=== PATIENT | male | born 1960 | race Two or more races ===

== ENCOUNTER 2018-03-14 10:19 | Day surgery (SDC) | payer BC ==
[2018-03-12 13:46] VITALS: BMI 37.9
[~2018-03-14 10:19] MED LIST: LACTATED RINGERS 1,000 ML IV SCH
[2018-03-14 11:58] VITALS: RESP 16; TEMP 97.1
[2018-03-14] MEDS ORDERED: LIDOCAINE 1% 20 ML VIAL (10MG/ML) FOR IV START INTRADERMA ONE (12:04)
[2018-03-14] MEDS ORDERED: PROPOFOL 10 MG/ML 20 ML VIAL IV ONE (12:19)
[2018-03-14] MEDS ORDERED: MIDAZOLAM 2 MG/2 ML VIAL ONE (12:19)
[2018-03-14] MEDS ORDERED: fentaNYL (PF) 50 MCG/ML 2 ML AMP ONE (12:19)
--- NOTE | 2018-03-14 12:41 | P.PCN ---
Date of Procedure: 03/14/18 Procedure(s) Performed: BRIEF HISTORY: Patient is a 57-year-old pleasant male, scheduled for an elective colonoscopy as a part of screening for colorectal neoplasia and family history of colon cancer. His father was diagnosed with colon cancer at age 60. PROCEDURE PERFORMED: Colonoscopy. PREOPERATIVE DIAGNOSIS: Screening for colon cancer/family history of colon cancer. IV sedation per Anesthesia. PROCEDURE: After informed consent was obtained, the patient, was brought into the endoscopy unit. IV sedation was administered by Anesthesia under continuous monitoring. Digital rectal examination was normal. Initially the Olympus CF- 160 flexible video colonoscope was then inserted in the rectum, gradually advanced into the cecum without any difficulty. Careful examination was performed as the scope was gradually being withdrawn. Ileocecal valve and the appendiceal orifice were visualized and appeared normal. Prep was excellent. Mucosa of the cecum, ascending colon, transverse colon, descending colon, sigmoid colon, and rectum appeared normal. Retroflexion was performed in the rectum and no lesions were seen. The patient tolerated the procedure well. IMPRESSION: Normal-appearing colon from rectum to cecum with no evidence of colorectal neoplasia. RECOMMENDATIONS: Findings of this examination were discussed with the patient as well as his family. He was advised to have a repeat screening colonoscopy in 5 years because of family history of colon cancer.
[2018-03-14 12:55] VITALS: BP 125/85; PULSE 68
== END 2018-03-14 13:19 | disposition home or self-care (01) ==
LOC: ORWHC2ENDO 10:19
PROVIDERS: ATTEND Internal Medicine Gastroenterology
DX: Z12.11 Encounter for screening for malignant neoplasm of colon (principal); K21.9 Gastro-esophageal reflux disease without esophagitis; Z80.0 Family history of malignant neoplasm of digestive organs; Z88.8 Allergy status to other drugs, medicaments and biological substances; Z79.899 Other long term (current) drug therapy
CPT/HCPCS: J2250; J3010; J2704; G0105

== ENCOUNTER → 2022-05-11 | Outpatient (CLI) | payer BC ==
--- NOTE | 2022-05-11 12:18 | XR ---
EXAMINATION TYPE: XR chest 2V DATE OF EXAM: 05/11/2022 COMPARISON: 05/04/2022 INDICATION: Cough TECHNIQUE: Frontal and lateral views of the chest are obtained. FINDINGS: The heart size is normal. The pulmonary vasculature is normal. Diffuse increased lung markings are present through the left mid and lower lung field. Significant in terval change is not evident. Continued follow-up is recommended. IMPRESSION: 1. Persistent diffuse increased lung markings more notable in the left mid and lower lung field appea r relatively stable from comparison. Continued follow-up is recommended.
== END | disposition home or self-care (01) ==
LOC: RADXRYALE 11:27
PROVIDERS: ATTEND Physician Assistant
DX: R05.9 Cough, unspecified (principal)
CPT/HCPCS: 71046